=== PATIENT | male | born 1950 | race African-American/Black ===

== ENCOUNTER 2018-08-29 22:29 | Emergency (ER) | payer SELFPAY ==
[~2018-08-29] VITALS: Ht 188 cm; Wt 82.0 kg
[2018-08-29 22:32] VITALS: BP 172/86
== END 2018-08-30 00:07 | disposition left against medical advice (07) ==
LOC: ER 22:29
DX: Z53.21 Procedure and treatment not carried out due to patient leaving prior to being seen by health care provider (principal)
CPT/HCPCS: 82962

== ENCOUNTER 2019-09-06 07:44 | Inpatient (IN) | payer MEDICARE, MEDICAID ==
[~2019-09-06] VITALS: Ht 188 cm; Wt 85.0 kg
[2019-09-06] MEDS ORDERED: SODIUM CHLORIDE 0.9% 1,000 ML IV ONE (08:11)
[2019-09-06] MEDS ORDERED: ACETAMINOPHEN 325MG TABLET PO STA (08:11)
[2019-09-06 08:37] LABS: BASOPHILS % 0.4 % (0.0-2.0); EOSINOPHILS % 2.3 % (0.0-5.0); HEMATOCRIT. 35.7 % (42.0-52.0); HEMOGLOBIN. 11.6 g/dL (14.0-18.0); LYMPHOCYTES % 36.3 % (20.0-50.0); MEAN CORPUSCULAR HEMOGLOBIN 22.3 pg (28.0-32.0); MEAN CORPUSCULAR VOLUME 68.5 fL (80.0-94.0); MEAN PLATELET VOLUME 7.5 fl (7.4-10.4); MONOCYTES % 7.3 % (2.0-8.0); NEUTROPHILS % 53.7 % (40.0-76.0); PLATELET 171 x1000/uL (130-400); RED BLOOD CELL COUNT 5.21 mill/uL (4.7-6.1); RED CELL DISTRIBUTION WIDTH 16.7 % (11.6-14.6)
[2019-09-06 08:41] LABS: CHLORIDE 109 mEq/L (98-107)
[2019-09-06 08:44] LABS: PROTHROMBIN TIME 10.8 sec (9.6-11.0)
[2019-09-06 09:21] LABS: PLATELET ESTIMATE NORMAL
[2019-09-06] MEDS ORDERED: POTASSIUM CHLORIDE 20MEQ TABLET SR PO NR (09:37)
[2019-09-06] MEDS ORDERED: ASPIRIN 325MG EC TABLET PO NR (10:41)
[2019-09-06] MEDS ORDERED: MAGNESIUM/ALUMINUM HYDROXIDE/SIMETHICONE 30ML UDC PO PRN (11:30)
[2019-09-06] MEDS ORDERED: ACETAMINOPHEN 325MG TABLET PO PRN ×2 (11:30)
[2019-09-06] MEDS ORDERED: IPRATROPIUM/ALBUTEROL 0.5-3(2.5)MG/3ML NEB HHN PRN (11:30)
[2019-09-06] MEDS ORDERED: GUAIFENESIN 200MG/10ML SUGAR FREE UDC PO PRN (11:30)
[2019-09-06] MEDS ORDERED: KETOROLAC 15MG/ML VIAL IV PRN (11:30)
[2019-09-06] MEDS ORDERED: ZOLPIDEM TARTRATE 5MG TABLET PO PRN (11:30)
[2019-09-06] MEDS ORDERED: NITROGLYCERIN 0.4MG TABLET SL SL PRN (11:30)
[2019-09-06] MEDS ORDERED: ONDANSETRON HCL 4MG/2ML INJ IV PRN (11:30)
[2019-09-06] MEDS ORDERED: POTASSIUM CHLORIDE 20MEQ TABLET SR PO SCH (11:30)
[2019-09-06] MEDS ORDERED: LISINOPRIL 20MG TABLET PO SCH (11:30)
[2019-09-06] MEDS ORDERED: TRAMADOL 50MG TABLET PO PRN (11:30)
[2019-09-06] MEDS ORDERED: DEXTROSE 50% WATER 50ML SYRINGE IV PRN (11:30)
[2019-09-06] MEDS ORDERED: DOCUSATE SODIUM 100MG CAPSULE PO PRN (11:30)
[2019-09-06 11:58] LABS: ETHANOL BLOOD < 10 mg/dL
[2019-09-06 12:00] LABS: LDL CHOLESTEROL 42 mg/dL (5-100); TOTAL IRON BINDING CAPACITY 236 ug/dL (250-450)
[2019-09-06 12:03] LABS: HDL CHOLESTEROL 110 mg/dL (40-59); T4 FREE 1.02 ng/dL (0.76-1.46)
[2019-09-06 12:14] LABS: FOLIC ACID (FOLATE) SERUM 3.5 ng/mL (>5.38)
[2019-09-06] MEDS: ENOXAPARIN 40MG/0.4ML SYR SUBCUT SCH ×2 (12:28→21:19)
[2019-09-06] MEDS: BLOOD SUGAR DIAGNOSTIC STRIP TEST SCH ×2 (13:00→22:15)
[2019-09-06] MEDS: INSULIN LISPRO 100 UNITS/ML SUBCUT SCH ×2 (13:20→22:15)
[2019-09-06 15:31] LABS: CREATINE KINASE 71 IU/L (39-308)
[2019-09-06 15:33] LABS: CREATINE KINASE MB FRACTION < 1.0 ng/mL (0.5-3.6)
[2019-09-06] MEDS: SUCRALFATE 1 G/10 ML UDC PO SCH ×2 (16:08→23:18)
[2019-09-06] MEDS: CLONIDINE 0.1MG TABLET PO PRN ×2 (16:17→23:20)
[2019-09-06 16:58] LABS: CLARITY URINE CLEAR (CLEAR); COLOR URINE YELLOW (YELLOW); KETONES URINE NEGATIVE (NEGATIVE); LEUKOCYTE ESTERASE URINE 1+ (NEGATIVE); NITRITE URINE NEGATIVE (NEGATIVE); OCCULT BLOOD URINE 2+ (NEGATIVE); PH URINE 5.5 (4.5-8.0); PROTEIN URINE NEGATIVE (NEGATIVE); SPECIFIC GRAVITY URINE 1.025 (1.005-1.030)
[2019-09-06 17:15] LABS: *AMPHETAMINES SCREEN URINE NEGATIVE (NEGATIVE); *BARBITURATES SCREEN URINE NEGATIVE (NEGATIVE)
[2019-09-06 17:16] LABS: *BENZODIAZEPINES SCREEN URINE NEGATIVE (NEGATIVE); *COCAINE SCREEN URINE NEGATIVE (NEGATIVE); CANNABINOID URINE SCREEN NEGATIVE (NEGATIVE); METHADONE URINE SCREEN NEGATIVE (NEGATIVE); PHENCYCLIDINE URINE SCREEN NEGATIVE (NEGATIVE)
[2019-09-06] MEDS ORDERED: LEVOFLOXACIN 500MG PREMIX 100 ML IV SCH ×2 (21:15→23:00)
[2019-09-06] MEDS: LISINOPRIL 20MG TABLET PO SCH (21:22)
[2019-09-06] MEDS ORDERED: FOLIC ACID 1 MG, THIAMINE HCL 100 MG, MVI, ADULT NO.1 10 ML in DEXTROSE 5% WATER 1,000 ML IV ONE ×4 (21:30)
[2019-09-06 22:10] VITALS: BP 203/75
[2019-09-06 22:15] VITALS: BP 203/76
[2019-09-06] MEDS: METHYLPREDNISOLONE SOD SUCC 125 MG/2 ML VIAL IV SCH (23:18)
[2019-09-06] MEDS: FAMOTIDINE 20MG TABLET PO SCH (23:18)
[2019-09-06] MEDS: GUAIFENESIN/DM 600MG/30MG ER TAB 12HR PO SCH (23:18)
[2019-09-07] VITALS: BP 175/61
[2019-09-07 00:09] LABS: CREATINE KINASE 77 IU/L (39-308)
[2019-09-07 00:10] LABS: CREATINE KINASE MB FRACTION < 1.0 ng/mL (0.5-3.6)
[2019-09-07] MEDS ORDERED: BENA10TA75 MT (00:46)
[2019-09-07] MEDS: LEVOFLOXACIN 500MG PREMIX 100 ML IV SCH (01:14)
[2019-09-07 04:00] VITALS: BP 177/79
[2019-09-07] MEDS: IPRATROPIUM/ALBUTEROL 0.5-3(2.5)MG/3ML NEB HHN SCH ×5 (04:26→21:10)
[2019-09-07] MEDS: BLOOD SUGAR DIAGNOSTIC STRIP TEST SCH ×4 (06:07→21:00)
[2019-09-07] MEDS: METHYLPREDNISOLONE SOD SUCC 125 MG/2 ML VIAL IV SCH ×3 (06:26→21:01)
[2019-09-07] MEDS: SUCRALFATE 1 G/10 ML UDC PO SCH ×4 (06:26→21:15)
[2019-09-07] MEDS: INSULIN LISPRO 100 UNITS/ML SUBCUT SCH ×4 (06:29→21:00)
[2019-09-07 06:40] LABS: BASOPHILS % 0.2 % (0.0-2.0); HEMATOCRIT. 36.6 % (42.0-52.0); HEMOGLOBIN. 11.9 g/dL (14.0-18.0); MEAN CORPUSCULAR HEMOGLOBIN 22.5 pg (28.0-32.0); MEAN CORPUSCULAR VOLUME 68.9 fL (80.0-94.0); MEAN PLATELET VOLUME 8.4 fl (7.4-10.4); MONOCYTES % 1.3 % (2.0-8.0); NEUTROPHILS % 87.5 % (40.0-76.0); PLATELET 165 x1000/uL (130-400); RED BLOOD CELL COUNT 5.31 mill/uL (4.7-6.1); RED CELL DISTRIBUTION WIDTH 17.1 % (11.6-14.6)
[2019-09-07 07:02] LABS: CHLORIDE 108 mEq/L (98-107)
[2019-09-07 07:10] LABS: PHOSPHORUS 1.6 mg/dL (2.5-4.9)
[2019-09-07 08:00] VITALS: BP 135/64
[2019-09-07] MEDS: GUAIFENESIN/DM 600MG/30MG ER TAB 12HR PO SCH ×2 (09:47→21:02)
[2019-09-07] MEDS: FAMOTIDINE 20MG TABLET PO SCH ×2 (09:47→21:02)
[2019-09-07] MEDS: ASPIRIN 325MG EC TABLET PO SCH (09:48)
[2019-09-07] MEDS: LISINOPRIL 20MG TABLET PO SCH ×2 (09:48→21:02)
[2019-09-07 12:00] VITALS: BP 163/64
[2019-09-07] MEDS: FOLIC ACID 1MG TABLET PO SCH (14:39)
[2019-09-07 16:00] VITALS: BP 157/67
[2019-09-07 20:00] VITALS: BP 137/64
[2019-09-07 20:16] LABS: OPIATES URINE SCREEN NEGATIVE (NEGATIVE)
[2019-09-08] VITALS: BP 132/69
[2019-09-08] MEDS: IPRATROPIUM/ALBUTEROL 0.5-3(2.5)MG/3ML NEB HHN SCH ×6 (00:54→20:05)
[2019-09-08] MEDS: LEVOFLOXACIN 500MG PREMIX 100 ML IV SCH (00:58)
[2019-09-08] MEDS: CLONIDINE 0.1MG TABLET PO PRN ×2 (01:14→15:06)
[2019-09-08 04:00] VITALS: BP 150/56
[2019-09-08] MEDS: METHYLPREDNISOLONE SOD SUCC 125 MG/2 ML VIAL IV SCH ×2 (05:59→14:05)
[2019-09-08] MEDS: SUCRALFATE 1 G/10 ML UDC PO SCH ×4 (06:00→21:03)
[2019-09-08] MEDS: BLOOD SUGAR DIAGNOSTIC STRIP TEST SCH ×4 (06:33→21:04)
[2019-09-08] MEDS: INSULIN LISPRO 100 UNITS/ML SUBCUT SCH ×4 (07:15→21:00)
[2019-09-08 08:00] VITALS: BP 154/47
[2019-09-08] MEDS ORDERED: FOLIC ACID 1MG TABLET PO SCH (09:00)
[2019-09-08] MEDS: ASPIRIN 325MG EC TABLET PO SCH (09:17)
[2019-09-08] MEDS: LISINOPRIL 20MG TABLET PO SCH ×2 (09:17→21:04)
[2019-09-08] MEDS: FOLIC ACID 1MG TABLET PO SCH (09:18)
[2019-09-08] MEDS: GUAIFENESIN/DM 600MG/30MG ER TAB 12HR PO SCH ×2 (09:18→21:03)
[2019-09-08] MEDS: FAMOTIDINE 20MG TABLET PO SCH ×2 (09:18→21:04)
[2019-09-08 12:00] VITALS: BP 168/58
[2019-09-08] MEDS: ENOXAPARIN 40MG/0.4ML SYR SUBCUT SCH (14:06)
[2019-09-08 16:00] VITALS: BP 179/78
[2019-09-08] MEDS ORDERED: METHYLPREDNISOLONE SOD SUCC 40 MG/ML VIAL IV SCH (18:00)
[2019-09-08] MEDS ORDERED: AMLODIPINE 5MG TABLET PO SCH (21:00)
[2019-09-08 22:17] VITALS: BP 160/55
== END 2019-09-08 23:19 | DRG 74 ==
LOC: ER 07:58 → SUPCPDRO 11:22 → ENRESERV 21:14 → 5WST 22:12
PROVIDERS: ADMIT Internal Medicine; ATTEND Internal Medicine
DX: G90.8 Other disorders of autonomic nervous system (principal); J44.1 Chronic obstructive pulmonary disease with (acute) exacerbation; N39.0 Urinary tract infection, site not specified; E44.1 Mild protein-calorie malnutrition; D52.9 Folate deficiency anemia, unspecified; E11.9 Type 2 diabetes mellitus without complications; E87.6 Hypokalemia; F17.210 Nicotine dependence, cigarettes, uncomplicated; E87.8 Other disorders of electrolyte and fluid balance, not elsewhere classified; D50.9 Iron deficiency anemia, unspecified; R29.6 Repeated falls; I11.9 Hypertensive heart disease without heart failure; Z68.24 Body mass index [BMI] 24.0-24.9, adult
CPT/HCPCS: 36415; 70551; 71045; 80053; 80061; 80305; 80320; 81003; 82550; 82553; 82607; 82746; 82962; 83036; 83540; 83550; 83735; 84100; 84439; 84443; 84484; 85025; 93005; 93970; 94640; 96374; 97116; 97162; 97166; 99285; J1650; J1815; J1956; J2920; J2930; J3411; J3490; J7030; J7070; G0480

== ENCOUNTER 2021-09-24 19:44 | Emergency (ER) | payer MEDICARE, MEDICAID ==
[~2021-09-24] VITALS: Ht 185.4 cm; Wt 79.0 kg
[~2021-09-24 19:44] MED LIST: IBUP-2028 MT; LIDO1ADH23 TP; TOPUD PO
[2021-09-24 20:33] VITALS: BP 136/60
[2021-09-24 23:12] LABS: BASOPHILS % 0.5 % (0.0-2.0); HEMATOCRIT. 33.7 % (42.0-52.0); HEMOGLOBIN. 10.8 g/dL (14.0-18.0); LYMPHOCYTES % 39.2 % (20.0-50.0); MEAN CORPUSCULAR HEMOGLOBIN 22.1 pg (28.0-32.0); MEAN CORPUSCULAR VOLUME 68.5 fL (80.0-94.0); MEAN PLATELET VOLUME 7.8 fl (7.4-10.4); MONOCYTES % 9.5 % (2.0-8.0); NEUTROPHILS % 47.8 % (40.0-76.0); PLATELET 195 x1000/uL (130-400); RED BLOOD CELL COUNT 4.92 mill/uL (4.7-6.1); RED CELL DISTRIBUTION WIDTH 16.2 % (11.6-14.6)
[2021-09-24 23:16] LABS: CHLORIDE 112 mEq/L (98-107)
[2021-09-25 00:30] LABS: CLARITY URINE CLEAR (CLEAR); COLOR URINE YELLOW (YELLOW); KETONES URINE TRACE (NEGATIVE); LEUKOCYTE ESTERASE URINE 1+ (NEGATIVE); NITRITE URINE NEGATIVE (NEGATIVE); OCCULT BLOOD URINE NEGATIVE (NEGATIVE); PROTEIN URINE NEGATIVE (NEGATIVE); SPECIFIC GRAVITY URINE 1.028 (1.005-1.030)
[2021-09-25 00:38] LABS: PLATELET ESTIMATE NORMAL
[2021-09-25] MEDS ORDERED: CEPH500T MT (02:46)
== END 2021-09-25 04:21 | disposition home or self-care (01) ==
LOC: ER 19:44
DX: N39.0 Urinary tract infection, site not specified (principal); R31.0 Gross hematuria; F03.90 Unspecified dementia, unspecified severity, without behavioral disturbance, psychotic disturbance, mood disturbance, and anxiety
CPT/HCPCS: 36415; 80053; 81003; 85025; 99283